=== PATIENT | female | born 1980 | race Two or more races ===

== ENCOUNTER 2019-01-29 07:03 | Day surgery (SDC) | payer OTHER ==
[~2019-01-29 07:03] MED LIST: ATOVAQUONE PO; CHERATUSSIN OR; CONCEPT OB PO; FERROUS SULFAT325 MG PO; FLEXERIL PO; FLUZONE SPLT1 M1 IM; LEVOTHYROXIN100 MCG PO; LEVOTHYROXIN112 MC1 PO; LEVOTHYROXIN125 MC1 PO; NO HOME MEDS; OB COMPLET2 PO; PENICILLN VK500 MG PO; PROAIR HFA IN; PROG PO; RANITIDINE75 M1 PO; TUBERSOL5 MG/0.1 M ID; ZOFRAN ODT4 MG PO; ZYRTEC-D ALG OR
[2019-01-29 08:53] VITALS: BP 139/84
== END 2019-01-29 09:05 | disposition home or self-care (01) ==
LOC: ENDO 07:03 → ORM 09:00 → ENDO 09:05
PROVIDERS: ATTEND Surgery
DX: D64.9 Anemia, unspecified (principal); R19.5 Other fecal abnormalities